=== PATIENT | male | born 1990 | race Caucasian/White ===

== ENCOUNTER 2018-11-30 00:53 | Emergency (ER) | payer BC ==
[2018-11-30] MEDS ORDERED: IBUPROFEN 600 MG TABLET (FP) PO ONE ×2 (01:04→01:07)
--- NOTE | 2018-11-30 01:04 | PDOC ---
History of Present Illness - General Chief Complaint: Pain, Acute Stated Complaint: LEFT ARM PAIN/CHEST PAIN Time Seen by Provider: 11/30/18 00:55 History Source: Patient - History of Present Illness Initial Comments: 11/30/18 01:01 28yoM no pmhx, + e-cig,+ marijuana use daily presents w/ muscle spasms to L forearm and L chest yesterday, today muscles in these areas are "sore". No travel, no palps, no sob/montemayor, no hx of ptx or pna, no f/c, no cough. Past History - Past Medical History Allergies/Adverse Reactions: Allergies Allergy/AdvReac Type Severity Reaction Status Date / Time No Known Allergies Allergy Verified 11/30/18 01:01 Home Medications: Ambulatory Orders NK [No Known Home Medication] 11/28/15 Disorders: Yes (PROSTATE) - Suicide/Smoking/Psychosocial Hx Smoking History: Current every day smoker Have you smoked in the past 12 months: Yes Number of Cigarettes Smoked Daily: 4 'Breaking Loose' booklet given: 07/01/15 Hx Alcohol Use: Yes (RARE) Drug/Substance Use Hx: Yes Substance Use Type: Cocaine, Marijuana Review of Systems - Review of Systems All Other Systems: Reviewed and Negative *Physical Exam - Physical Exam Comments: 11/30/18 01:03 NAD, well appearing, anxious EOMI, ALAN MMM RRR CTABL, full to apices soft NTND no deformity to L forearm no rash to skin. A&O x 3. Heart Score/ECG Review - History History: Slightly suspicious - Electrocardiogram EKG: Normal - Age Age: </= 45 - Risk Factors Risk Factors Heart Score: No Hx Hypercholesterolemia, No Hx Hypertension, No Hx Diabetes, No Smoking History, No Positive family hx of cardiac disease, No Hx Obesity Based on the list above the patient has:: No risk factors known - ECG Intrepretation Rhythm: Regular Rhythm - [place]: Normal - ECG Impressions Normal ECG: Yes Medical Decision Making - Medical Decision Making 11/30/18 01:04 28yoM w/ sore muscles after muscle spasm. active nicotine and mj abuse. - ekg - ibuprofen - DC. *DC/Admit/Observation/Transfer Diagnosis at time of Disposition: Myalgia - Discharge Dispostion Disposition: HOME Condition at time of disposition: Stable - Referrals - Patient Instructions Additional Instructions: ibuprofen for pain. be sure to stay hydrated. avoid additives in marijuana and nicotine products. return to ER for: fainting measured heart rate sustained above 130 beats per minute at rest severe difficulty breathing. - Post Discharge Activity
[2018-11-30 01:06] VITALS: BP 158/65; PULSE 71; TEMP 97.6; BMI 25.0
--- NOTE | 2018-11-30 10:19 | EKG ---
Test Reason : Blood Pressure : / mmHG Vent. Rate : 060 BPM Atrial Rate : 060 BPM P-R Int : 156 ms QRS Dur : 096 ms QT Int : 402 ms P-R-T Axes : 041 051 037 degrees QTc Int : 402 ms NORMAL SINUS RHYTHM NORMAL ECG NO PREVIOUS ECGS AVAILABLE Confirmed by SHELLY SCALES, WICHO ([id number]) on 11/30/2018 10:18:39 AM Referred By: DR YOU Confirmed By:WICHO BRAVO MD
== END 2018-11-30 01:21 | disposition home or self-care (01) ==
LOC: FER 00:53
DX: M79.10 Myalgia, unspecified site (principal)
CPT/HCPCS: 93005; 99281-25

== ENCOUNTER 2019-10-03 12:22 | Emergency (ER) | payer BC ==
[2019-10-03 12:37] VITALS: BP 117/60; PULSE 70; TEMP 97.3; BMI 25.0
[2019-10-03] MEDS ORDERED: ACETAMINOPHEN 325 MG TABLET (FP) PO ONE (12:39)
[2019-10-03] MEDS ORDERED: IBUPROFEN 400 MG TABLET (FP) PO ONE ×2 (12:39→12:53)
--- NOTE | 2019-10-03 12:39 | PDOC ---
History of Present Illness - General Chief Complaint: Injury Stated Complaint: TOE INJURY Time Seen by Provider: 10/03/19 12:34 History Source: Patient Exam Limitations: No Limitations - History of Present Illness Initial Comments: 10/03/19 12:38 29y M presents with L toe pain. 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 Patient complaining of persistent pain with a throbbing pain sensation. He denies any numbness tingling, denies any other injuries ROS: Ext: Toe injury with pain, no bleeding exam: General: no distress ext: diffuse tenderness to L great toe, +subungal hematoma, will obtain xray to r/o fx tylenol/motrin for pain Past History - Past Medical History Allergies/Adverse Reactions: Allergies Allergy/AdvReac Type Severity Reaction Status Date / Time No Known Allergies Allergy Verified 10/03/19 12:24 Home Medications: Ambulatory Orders NK [No Known Home Medication] 11/28/15 COPD: No Diabetes: No Disorders: Yes (PROSTATE) HTN: No Hypercholesterolemia: No - Psycho Social/Smoking Cessation Hx Smoking History: Current some day smoker Have you smoked in the past 12 months: Yes Number of Cigarettes Smoked Daily: 0 Information on smoking cessation initiated: Yes 'Breaking Loose' booklet given: 07/01/15 Hx Alcohol Use: Yes (OCCASIONAL) Drug/Substance Use Hx: No Substance Use Type: Cocaine, Marijuana *Physical Exam - Vital Signs Last Vital Signs Temp Pulse Resp BP Pulse Ox 97.3 F L 70 15 117/60 97 10/03/19 12:24 10/03/19 12:24 10/03/19 12:24 10/03/19 12:24 10/03/19 12:24 Procedures - Consent Consent obtained: Verbal - Nail Trephination Nail Trephination Location: R great toe Method of Drainage: 18 gauge needle Sterile Dressing Applied: Yes ED Treatment Course - RADIOLOGY Radiology Studies Ordered: Category Date Time Status TOE(S) RIGHT [RAD] Stat Radiology 10/03/19 12:37 Ordered Medical Decision Making - Medical Decision Making 10/03/19 12:55 pt feeling better with trephination awaiting xray 10/03/19 13:23 no fx on xray will dc pt wtih supportive care I discussed the physical exam findings, ancillary test results and final diagnoses with the patient. I answered all of the patient's questions. The patient was satisfied with the care received and felt comfortable with the discharge plan and treatment plan. The patient will call their primary care physician within 24 hours to arrange follow-up and will return to the Emergency Department with any new, persistent or worsening symptoms. Discharge - Discharge Information Problems reviewed: Yes Clinical Impression/Diagnosis: Subungual hematoma of great toe of left foot Qualifiers: Encounter type: initial encounter Qualified Code(s): S90.212A - Contusion of left great toe with damage to nail, initial encounter Condition: Improved Disposition: HOME - Admission No - Follow up/Referral Referrals: Cain Farah MD [Primary Care Provider] - - Patient Discharge Instructions Patient Printed Discharge Instructions: DI for Subungual Hematoma Additional Instructions: Return to the emergency department immediately with ANY new, persistent or worsening symptoms. Keep the area clean and dry keep a Band-Aid and gauze on it to wick away the blood. You may clean normally with soap and water. If there is worsening pain, swelling, redness or any other concerns return to the ER for their evaluation You MUST call and follow up with your doctor in 4-5 days for further evaluation of your symptoms. Results were discussed with you. Please make sure your doctor reviews the results of your emergency evaluation. Your Emergency Department visit is not complete without a follow up with your doctor. Print Language: CITIZEN OF [place] - Post Discharge Activity
[2019-10-03] MEDS ORDERED: ACETAMINOPHEN 500 MG TABLET (FP) ONE (12:53)
== END 2019-10-03 13:33 | disposition home or self-care (01) ==
LOC: FER 12:22
PROC: 0H9NXZZ Drainage of Left Foot Skin, External Approach (ICD-10-PCS; principal; 2019-10-03)
DX: S90.112A Contusion of left great toe without damage to nail, initial encounter (principal); W20.8XXA Other cause of strike by thrown, projected or falling object, initial encounter; Y93.89 Activity, other specified; Y92.89 Other specified places as the place of occurrence of the external cause; Y99.0 Civilian activity done for income or pay; F17.210 Nicotine dependence, cigarettes, uncomplicated
CPT/HCPCS: 73660-TC-LT-FY; 99282-25